=== PATIENT | male | born 1940 | race Caucasian/White ===

== ENCOUNTER 2020-03-17 13:06 | Outpatient (CLI) | payer OTHER, MEDICARE, SELFPAY ==
--- NOTE | 2020-03-17 13:30 | USCV_ITS ---
Federico May Age: 79 Gender: M : 1940 Exam Date: 03/17/2020 13:35 Ordering Phys: Ethan Pulido MD Technologist: Rey Bullock Exam Location: [facility] [place]_ Indication: PRE OP Findings The upper extremity arteries and veins well interrogated in the standard fashion. The axillary, brachial, radial and ulnar arteries were interrogated bilaterally and was found to have normal Doppler waveforms and velocities. The cephalic, basilic, axillary and brachial veins also identified bilaterally and was interrogated. There were found to be easily compressible On the right side, the axillary, brachial, radial and the ulnar arteries were measuring 4.8, 6.0, 2.7 and 2.8 mm respectively in diameter. The right cephalic vein in the upper upper arm, forearm and the wrist were measuring 2.3, 2.8 and 3.6 mm respectively. The basilic vein at the upper arm, AC space and the median basilic vein were measuring 4.5, 3.4 and 2.8 mm respectively. The right axillary and brachial veins fair measuring 3.4 and 3.5 mm respectively. The brachial vein was found to be a dual system On the left side the axillary, brachial, radial and the ulnar arteries were measuring 6.7, 5.6, 3.1 and 2.8 mm respectively. The axillary and brachial veins were measuring 5.7, 4.1 respectively. The brachial vein was dual system. The cephalic vein at the upper arm, forearm and the wrist were measuring 2.1, 3.4 and 2.7 mm respectively. The basilic vein in the upper arm, AC space and the median basilic levels where 6.0, 4.0 and 3.4 mm respectively. The veins were found to be easily compressible bilaterally. Conclusions 1. Patent veins and arteries bilaterally. 2. Normal arterial and venous dimensions bilaterally. 3. No evidence of venous thrombosis. 4. No evidence of arterial obstruction. 5. The arterial and venous dimensions as mentioned above Dr Sander Barnes MD [facility] (Electronically Signed) Final Date: 17 March 2020 17:19 S
== END 2020-03-17 13:07 | disposition home or self-care (01) ==
LOC: RAD 13:11
PROVIDERS: PCP Family Medicine; Visit Provider Internal Medicine Nephrology
DX: Z01.818 Encounter for other preprocedural examination (principal)
CPT/HCPCS: 93970

== ENCOUNTER 2020-11-01 10:52 | Day surgery (SDC) | payer OTHER, MEDICARE, SELFPAY ==
[2020-10-17 15:34] VITALS: BMI 36.9
--- NOTE | 2020-10-31 13:02 | PC.NURSE ---
SURGERY RESCHEDULED FOR NEXT FRIDAY. PT IS BEING TREATED FOR UTI AND STATED HE IS NOT FEELING WELL AT THIS TIME. DR FLORENCIO EMMANUEL.
--- NOTE | 2020-11-01 | SCC_ITS ---
Procedure Done: Exchange of tunneled hemodialysis catheter to 16 [place] 31 cm long AshSplit tunneled hemodialysis catheter 22.8 seconds of fluoroscopic guidance, for a cumulative dose of 6.69 mGy, was provided to Dr. Jennings by the radiology department. C-arm images of the chest were saved for the patient's permanent record. [facility]
[2020-11-01 11:14] VITALS: BP 122/71; PULSE 85; RESP 16; TEMP 37.6; O2SAT 96
[2020-11-01] MEDS: sodium chloride 0.9% 1,000 ML 30 ML IV (11:22)
--- NOTE | 2020-11-01 11:54 | W.PM.OPSUD ---
Surgery/Procedure H&P Update DATE OF PROCEDURE: November 01, 2020 DATE H&P PERFORMED: 10/13/20 H&P UPDATE INFORMATION: I have reviewed H&P completed within last 30 days, I have examined patient prior to procedure and No changes to prior documentation PREOP DIAGNOSIS: Malpositioned hemodialysis catheter PLANNED PROCEDURE: Operation Date: 11/01/20 11:35 Proposed Procedures p Dialysis Catheter Exchange 65596(Not Applicable) - Micheal Hernandez MD
--- NOTE | 2020-11-01 12:14 | SC_ITS ---
WS: [id number] Exam: C-arm FL for CVA [id number] Date/Time of Exam: 11/01/2020 12:14 PM Reason For Exam: intra-op A limited AP C-arm image of the right chest depicts a double lumen catheter in place which appears to end within the expected region of the cavoatrial junction and the right atrium. No obvious complicat ion identified from this limited single image presented.
--- NOTE | 2020-11-01 12:44 | ANES.PREANE2 ---
Pre-Anesthetic Assessment Pre-Anesthetic Assessment: Height/Weight: Height 1.8 m Weight 120.202 kg Temp Pulse Resp BP Pulse Ox 99.6 F 85 16 122/71 96 11/01/20 11:14 11/01/20 11:14 11/01/20 11:14 11/01/20 11:14 11/01/20 11:14 Preop Diagnosis: Malpositioned hemodialysis catheter Proposed Procedure: Operation Date: 11/01/20 11:35 Proposed Procedures p Dialysis Catheter Exchange 79926(Not Applicable) - Micheal Hernandez MD Was Beta Millicent taken within 24 hours: N/A Last intake: Intake Last Liquid Date 11/01/20 Last Liquid Time 04:15 Last Solid Date 10/31/20 Last Solid Time 16:30 Social: Social History: No alcohol and No tobacco Exam: Pre-Anes Outpt Exam: alert, oriented x 3, clear to auscultation bilaterally and regular rate & rhythm Airway: Submandibular: WNL Cervical ROM: WNL MP: 2 Additional comments: OK dentition Pulmonary: Pulmonary: COPD CV/HEM: CV/HEM: Afib, Anemia, Arrythmia and HTN : : Chronic renal failure Metabolic: Metabolic: Morbid obesity Musc/skel: Musc/skel: OA/DJD Anesthetic Plan: ASA status: 3 Anesthesia: MAC Risk of > 500 ml blood loss (7ml/kg in children): No Meds/Allergies Current Medications: Current Medications Generic Name Dose Route Start Last Admin Trade Name Freq PRN Reason Stop Dose Admin Sodium Chloride 1,000 mls @ 30 ml s/hr 11/01/20 11:15 11/01/20 11:22 Sodium Chloride 0.9% IV 11/02/20 11:14 30 mls/hr .Q24H LISA Administration PFSH Anesthesia PFSH: Medical History Chronic kidney disease Hemodialysis patient Surgical History (Updated 11/01/20 @ 11:57 by Micheal Hernandez MD) History of colonoscopy History of laparoscopic cholecystectomy History of left hip replacement S/P hemodialysis catheter insertion (11/01/20) Exchanged 11/01/2020 Family History Denies family history of Anesthesia complication Bleeding disorder Data Anesthesia Cardiac Studies: No Data to Display
--- NOTE | 2020-11-01 13:48 | ANE.PACU2 ---
Inpatient post-anesthesia follow up: Airway intact: Yes Vital signs: Temperature 99.6 F Pulse Rate 85 Respiratory Rate 16 Blood Pressure 122/71 Pulse Oximetry 96 Oxygen Delivery Me thod Room Air Oxygen Flow Rate Fraction of Inspir ed Oxygen Hydration adequate: Yes Nausea and vomiting: No Pain level: 1 Mental status: Baseline
[2020-11-01 13:50] VITALS: BP 89/59; PULSE 60; RESP 18; TEMP 36.1; O2SAT 95
[2020-11-01 14:10] VITALS: BP 107/64; PULSE 71; RESP 18; O2SAT 95
--- NOTE | 2020-11-01 14:13 | PM.OP ---
Operative Report Date of procedure: November 01, 2020 Pre-op Diagnosis: Malpositioned hemodialysis catheter Post-op Diagnosis: Malpositioned hemodialysis catheter with cuff present exteriorly Procedure Done: Exchange of tunneled hemodialysis catheter to 16 [place] 31 cm long AshSplit tunneled hemodialysis catheter Fluoroscopic guidance and interpretation for placement of catheter Pathology: none sent Surgeon: Micheal Hernandez Anesthesia: MAC Condition: stable Disposition: same day Procedure: The patient was taken to the operating room and placed under MAC after IV antibiotic had been administered. The right chest including the catheter was prepped and draped in a sterile manner. The position of the new catheter was confirmed under fluoroscopy by marking of the chest wall. A stab incision was made in the right chest as well as the right neck where the existing catheter entered into the right internal jugular vein. In the neck the subcutaneous tissue was opened using hemostats and the catheter was dissected free and hemostat applied and catheter was divided using scissors to remove the proximal part of the catheter without difficulty. 16 [place] 31 cm long AshSplit tunneled catheter was attached to the tunneler and introduced through the stab incision on the chest and exteriorized through the stab incision on the right side of the neck. A guidewire was passed through the portion of the catheter within the internal jugular vein and the catheter was removed under fluoroscopy. A dilator sheath was passed over the wire and the inner dilator and wire was removed. The new catheter was introduced into the superior vena cava as the peel-away sheath was removed. Fluoroscopy confirmed good position of the catheter. Both catheter ports flushed and hanna blood easily and 5 cc of 1: 10,000 units of heparin was injected equally in both ports. The incision in the right neck was closed using 4-0 Monocryl suture and surgical glue. The catheter sutured to the skin on the right chest using 3-0 Prolene suture. Pressure dressings were applied. The patient was transferred to same-day surgery in stable condition.
== END 2020-11-01 14:20 | disposition home or self-care (01) ==
PROVIDERS: PCP Family Medicine; Visit Provider Surgery
PROC: (CPT 36581; principal; 2020-11-01 11:35)
DX: T85.621A Displacement of intraperitoneal dialysis catheter, initial encounter (principal); J44.9 Chronic obstructive pulmonary disease, unspecified; I48.91 Unspecified atrial fibrillation; I10 Essential (primary) hypertension; E66.01 Morbid (severe) obesity due to excess calories; Z68.37 Body mass index [BMI] 37.0-37.9, adult; M19.90 Unspecified osteoarthritis, unspecified site
CPT/HCPCS: 36581; 36815; 76000; 77001; C1750; J0690; J2704; J3010; J3490; J7030

== ENCOUNTER 2021-01-31 13:06 | Outpatient (CLI) | payer OTHER, MEDICARE, SELFPAY ==
--- NOTE | 2021-01-31 13:19 | XR_ITS ---
WS: [id number] Exam: XR chest 2V* [id number] Date/Time of Exam: 01/31/2021 1:35 PM Reason For Exam: SHORTNESS OF BREATH Comparison 07/19/2019 A right-sided double-lumen catheter ends in the lower one third of the SVC. The lungs are fully expan ded and clear. Normal cardiomediastinal structures for technique. Bony elements are intact. XR/XR chest 2V* [id number] IMPRESSION: 1. No acute cardiopulmonary finding.
== END 2021-01-31 13:07 | disposition home or self-care (01) ==
PROVIDERS: PCP Nurse Practitioner Family; Visit Provider Internal Medicine Nephrology
DX: N18.6 End stage renal disease (principal); R06.02 Shortness of breath
CPT/HCPCS: 71046